=== PATIENT | female | born 1975 ===

== ENCOUNTER 2017-02-21 11:46 | Emergency (ER) | payer BC ==
[2017-02-21 11:53] VITALS: RESP 16
[2017-02-21] MEDS ORDERED: Sodium Chloride 0.9% 1,000 ML IV ONE (12:07)
--- NOTE | 2017-02-21 12:15 | C.PDOC ---
History Of Present Illness Patient is a 42 y/o female who presents to the ED with complaints of nausea and vomiting for the last hour s/p taking Tramadol. Patient admits to having a throbbing migraine headache earlier today, associated with photophobia, and took Tramadol to alleviate symptoms. However patient denies eating anything prior to taking medication. Patient subsequently vomited and currently has feeling like she has an upset stomach. Denies any dizziness, numbness, or weakness. Time Seen by Provider: 02/21/17 11:58 Chief Complaint (Nursing): GI Problem History Per: Patient History/Exam Limitations: no limitations Onset/Duration Of Symptoms: Hrs Current Symptoms Are (Timing): Still Present Context: Other (took Tramadol on empty stomach) Associated Symptoms: Nausea, Vomiting Recent travel outside of the [place] States: No Past Medical History Reviewed: Historical Data, Nursing Documentation, Vital Signs Vital Signs: Last Vital Signs Temp 97.2 F L 02/21/17 14:20 Pulse 59 L 02/21/17 14:20 Resp 16 02/21/17 14:20 BP 121/74 02/21/17 14:20 Pulse Ox 100 02/21/17 14:20 - Medical History PMH: Hypothyroidism Surgical History: No Surg Hx - [facility] Procedures EPISIOTOMY (04/24/00) Family History: States: No Known Family Hx - Social History Hx Alcohol Use: No Hx Substance Use: No - Immunization History Hx Tetanus Toxoid Vaccination: No Hx Influenza Vaccination: No Hx Pneumococcal Vaccination: No Review Of Systems Gastrointestinal: Positive for: Nausea, Vomiting, Abdominal Pain Neurological: Positive for: Headache (previous symptoms ) Physical Exam - Physical Exam Appears: Well, Non-toxic, No Acute Distress Skin: Normal Color, Warm, Diaphoretic Head: Atraumatic, Normacephalic Eye(s): bilateral: Photophobia (covering eyes) Oral Mucosa: Moist Cardiovascular: Rhythm Regular, No Murmur Respiratory: Normal Breath Sounds, No Rales, No Rhonchi, No Wheezing Gastrointestinal/Abdominal: Soft, No Tenderness, Other (actively vomiting) Neurological/Psych: Oriented x3, Normal Speech, Normal Cognition ED Course And Treatment O2 Sat by Pulse Oximetry: 97 Medical Decision Making Medical Decision Making: Plan: IV NS and Reglan On reevaluation patient reports feeling much better, nausea resolved and headache has improved. She was able to tolerate PO and is stable for discharge Disposition Counseled Patient/Family Regarding: Diagnosis, Need For Followup - Disposition Referrals: [facility] [Outside] [facility] [Outside] [facility] [Outside] Disposition: HOME/ ROUTINE Disposition Time: 13:19 Condition: IMPROVED Additional Instructions: Drink fluids to stay hydrate Advise not to take any medications on empty stomach Follow up with your doctor for further evaluation Instructions: Migraine Headache (ED), Acute Nausea and Vomiting (ED) Forms: [employer] (Maltese), Work Excuse - POA Present On Arrival: None - Clinical Impression Clinical Impression: Medication side effect, Vomiting, Migraine - Scribe Statement The provider has reviewed the documentation as recorded by the Scribe Nilda Gilman All medical record entries made by the Scribe were at my direction and personally dictated by me. I have reviewed the chart and agree that the record accurately reflects my personal performance of the history, physical exam, medical decision making, and the department course for this patient. I have also personally directed, reviewed, and agree with the discharge instructions and disposition.
[2017-02-21] MEDS ORDERED: Sodium Chloride 0.9% 1,000 ML ONE (12:21)
[2017-02-21 14:27] VITALS: BP 121/74; PULSE 59; TEMP 97.2
[2017-02-22 15:59] VITALS: O2SAT 97
== END 2017-02-21 14:41 | disposition home or self-care (01) ==
LOC: C.ER 11:46
DX: R11.2 Nausea with vomiting, unspecified (principal); T40.4X5A Adverse effect of other synthetic narcotics, initial encounter; G43.909 Migraine, unspecified, not intractable, without status migrainosus; E03.9 Hypothyroidism, unspecified
CPT/HCPCS: 96374; 99284; J2765; J7040